=== PATIENT | female | born 1990 | race African-American/Black ===

== ENCOUNTER 2017-04-24 08:17 | Emergency (ER) | payer OTHER ==
[~2017-04-24] VITALS: Ht 154.9 cm; Wt 59.0 kg
[~2017-04-24 08:17] MED LIST: ALLEGRA-D 12 H1 EACH PO; AMOXICILLIN 50500 M1 PO; AZITHROMYCIN 2250 MG PO; FLAGYL500 MG PO; IBUPROFEN 600600 M1 PO; MONISTAT 744 GM VG; NAPROSYN500 MG PO; NOHOMEMEDICATIONS; PREDNISONE 20 M20 MG PO; PROVERA10 MG PO; TRAMADOL 50 MG50 MG PO
[2017-04-24] MEDS ORDERED: NAPROSYN500 MG PO (08:59)
[2017-04-24] MEDS ORDERED: NORFLEX100 MG PO (08:59)
== END 2017-04-24 09:00 | disposition home or self-care (01) ==
LOC: ER 08:17
DX: S29.012A Strain of muscle and tendon of back wall of thorax, initial encounter (principal); F10.10 Alcohol abuse, uncomplicated; X58.XXXA Exposure to other specified factors, initial encounter; Y93.89 Activity, other specified; Y92.89 Other specified places as the place of occurrence of the external cause; Y99.8 Other external cause status

== ENCOUNTER 2017-09-29 17:39 | Emergency (ER) | payer OTHER ==
[~2017-09-29] VITALS: Ht 154.9 cm; Wt 59.9 kg
[~2017-09-29 17:39] MED LIST changes: +NORFLEX100 MG PO
[2017-09-29] MEDS ORDERED: NORCO 5-325 TA1 EACH PO (17:47)
[2017-09-29 17:58] VITALS: BP 124/79
== END 2017-09-29 17:57 | disposition home or self-care (01) ==
LOC: ER 17:39
DX: H92.02 Otalgia, left ear (principal); Z88.5 Allergy status to narcotic agent; Z87.442 Personal history of urinary calculi

== ENCOUNTER 2017-12-22 07:10 | Emergency (ER) | payer OTHER ==
[~2017-12-22] VITALS: Ht 154.9 cm; Wt 59.9 kg
[~2017-12-22 07:10] MED LIST changes: +NORCO 5-325 TA1 EACH PO
[2017-12-22 07:28] LABS: URINE BILIRUBIN NEGATIVE (Negative); URINE BLOOD TRACE (Negative); URINE CLARITY CLEAR; URINE COLOR YELLOW; URINE GLUCOSE-RANDOM* NEGATIVE (Negative); URINE KETONES NEGATIVE (Negative); URINE LEUKOCYTES NEGATIVE (Negative); URINE NITRITE NEGATIVE (Negative); URINE PROTEIN (DIPSTICK) NEGATIVE (Negative); URINE UROBILINOGEN 0.2 E.U./dl (0.2-1.0)
[2017-12-22 07:54] LABS: ABSOLUTE NEUTROPHILS 3.9 thou/uL (1.4-8.2); BASOPHILS 0.7 % (0.0-2.0); EOSINOPHILS 1.9 % (0.0-3.0); HEMATOCRIT 26.6 % (37.0-47.0); HEMOGLOBIN 8.4 gm/dL (12.0-15.0); LYMPHOCYTES 27.6 % (24.0-44.0); MCH 19.7 pg (26.0-34.0); MCHC 31.7 g/dL (28.0-37.0); MCV 62.3 fL (80.0-100.0); MONOCYTES 8.3 % (1.0-8.0); PLATELET COUNT 391 thou/uL (150-400); POLYS 61.5 % (36.0-66.0); RBC 4.28 mil/uL (4.20-5.00); RDW 19.8 % (10.5-14.5); WBC 6.3 thou/uL (4.0-11.0)
[2017-12-22 08:04] LABS: CALCIUM 8.8 mg/dL (8.5-10.1); CREATININE 0.5 mg/dL (0.6-1.0); POTASSIUM 3.7 mmol/L (3.5-5.1)
[2017-12-22] MEDS ORDERED: NORCO 5-325 TA1 EACH PO (08:32)
[2017-12-22 08:37] LABS: ANISOCYTOSIS 1+; POIKILOCYTOSIS SLIGHT
[2017-12-22 08:38] LABS: HYPOCHROMASIA 2+; MICROCYTES 2+
== END 2017-12-22 08:45 | disposition home or self-care (01) ==
LOC: ER 07:10
PROVIDERS: Emergency Medicine
DX: M54.5 Low back pain (principal); R31.9 Hematuria, unspecified; Z88.5 Allergy status to narcotic agent

== ENCOUNTER → 2018-07-16 | Outpatient (CLI) | payer OTHER | LOC: ULTRA 09:13 | DX: N83.291 Other ovarian cyst, right side (principal); N92.0 Excessive and frequent menstruation with regular cycle ==

== ENCOUNTER 2018-09-01 22:15 | Emergency (ER) | payer OTHER ==
[~2018-09-01] VITALS: Ht 154.9 cm; Wt 59.9 kg
[2018-09-01 23:16] LABS: URINE BILIRUBIN NEGATIVE (Negative); URINE BLOOD 3+ (Negative); URINE CLARITY CLEAR; URINE COLOR YELLOW; URINE GLUCOSE-RANDOM* NEGATIVE (Negative); URINE KETONES NEGATIVE (Negative); URINE LEUKOCYTES-REFLEX NEGATIVE (Negative); URINE NITRITE-REFLEX NEGATIVE (Negative); URINE PROTEIN (DIPSTICK) NEGATIVE (Negative); URINE SPECIFIC GRAVITY 1.015 (1.005-1.035); URINE UROBILINOGEN 0.2 E.U./dl (0.2-1.0)
[2018-09-01 23:23] LABS: BACTERIA-REFLEX None Seen /HPF (None Seen); CASTS None Seen /LPF (None Seen); CRYSTALS None Seen /LPF (None Seen); MUCUS 0-3 Light strn/LPF (None Seen); SQUAMOUS 0-3 Few /LPF (0-3); URINE RBC >20 Many /HPF (0-2); URINE WBC-REFLEX None Seen /HPF (0-5)
[2018-09-02 00:10] VITALS: BP 139/73
== END 2018-09-02 00:10 | disposition home or self-care (01) ==
LOC: ER 22:15
PROVIDERS: Student in an Organized Health Care Education/Training Program
DX: N93.8 Other specified abnormal uterine and vaginal bleeding (principal); Z87.442 Personal history of urinary calculi; Z88.5 Allergy status to narcotic agent

== ENCOUNTER 2021-06-03 18:44 | Emergency (ER) | payer OTHER ==
[~2021-06-03] VITALS: Ht 154.9 cm; Wt 78.5 kg
[2021-06-03 18:49] VITALS: BP 142/99
== END 2021-06-03 20:24 | disposition left against medical advice (07) ==
LOC: ER 18:44
DX: N93.9 Abnormal uterine and vaginal bleeding, unspecified (principal); Z88.5 Allergy status to narcotic agent